=== PATIENT | female | born 1955 | race Caucasian/White ===

== ENCOUNTER 2019-12-31 06:05 | Inpatient (IN) | payer BC ==
[2019-12-27 14:56] VITALS: BMI 21.6
[2019-12-31] MEDS ORDERED: BUPIVACAINE LIPOSOME/PF (EXPAREL) 266 MG/20 ML VIAL ONE (06:50)
[2019-12-31] MEDS ORDERED: MIDAZOLAM HCL 2 MG/2 ML SINGLE DOSE VIAL ONE ×2 (06:50→08:05)
[2019-12-31] MEDS ORDERED: SODIUM CHLORIDE 0.9% P/F 10 ML VIAL IJ ONE (06:51)
[2019-12-31] MEDS ORDERED: VANCOMYCIN 1,000 MG VIAL (RESTRICTED TO ID ONLY) ONE (07:08)
[2019-12-31] MEDS ORDERED: TRANEXAMIC ACID 1000 MG/10 ML VIAL ONE ×2 (07:54→10:12)
[2019-12-31] MEDS ORDERED: ONDANSETRON 4 MG/2 ML VIAL ONE ×2 (07:54→10:21)
[2019-12-31] MEDS ORDERED: DEXAMETHASONE SOD PHOSPHATE 4 MG/1 ML VIAL ONE (07:54)
[2019-12-31] MEDS ORDERED: ceFAZolin SODIUM 1 GM VIAL ONE (07:54)
[2019-12-31] MEDS ORDERED: PROPOFOL 20 ML ONE ×5 (07:54→10:39)
[2019-12-31] MEDS ORDERED: SUCCINYLCHOLINE CHLORIDE 200 MG/10 ML SYRINGE ONE (07:54)
[2019-12-31] MEDS ORDERED: EPHEDRINE SULFATE/0.9% NACL/PF 50 MG/10 ML SYRINGE NR ONE (08:13)
[2019-12-31] MEDS ORDERED: BUPIVICAINE 0.25%/MORPH PF/KETOROLAC - 51ML DISP.SYRINGE IA ONE (09:27)
[2019-12-31] MEDS ORDERED: VANCOMYCIN 1,000 MG VIAL (RESTRICTED TO ID ONLY) IVPB ONE (10:11)
[2019-12-31] MEDS ORDERED: ONDANSETRON 4 MG/2 ML VIAL IVPUSH PRN ×2 (11:17→11:19)
[2019-12-31] MEDS ORDERED: MAGNESIUM HYDROX 2400MG/30ML ORAL SUSPENSION 30 ML CUP PO PRN (11:19)
[2019-12-31] MEDS ORDERED: MAG HYDROX/AL HYDROX/SIMETH 30 ML UNIT-DOSE CUP PO PRN (11:19)
[2019-12-31] MEDS ORDERED: LACTATED RINGERS SOLUTION 1,000 ML IV SCH ×2 (11:30)
[2019-12-31] MEDS: ACETAMINOPHEN 325 MG TABLET (FP) PO SCH ×3 (11:45→23:57)
[2019-12-31] MEDS: LACTATED RINGERS SOLUTION 1,000 ML/1,000 ML INFUS.BAG IV SCH (12:00)
[2019-12-31] MEDS: CEFAZOLIN 2 GM/D5W 2 GM/50 ML ML IVPB SCH ×2 (16:02→23:57)
[2019-12-31] MEDS: SENNOSIDES/DOCUSATE COMBO (SENNA PLUS) TABLET (UD) PO SCH (21:50)
[2019-12-31] MEDS: oxyCODONE HCL 10 MG SUSTAINED ACTING TABLET PO SCH (21:51)
[2019-12-31] MEDS: GABAPENTIN 300 MG CAPSULE PO SCH (21:51)
[2020-01-01] MEDS: ACETAMINOPHEN 325 MG TABLET (FP) PO SCH ×3 (05:23→17:13)
[2020-01-01] MEDS: oxyCODONE HCL 5 MG TABLET PO PRN ×3 (07:51→17:14)
[2020-01-01] MEDS: CEFAZOLIN 2 GM/D5W 2 GM/50 ML ML IVPB SCH (07:51)
[2020-01-01 08:21] LABS: HEMATOCRIT 30.5 % (32.4-45.2); MCH 32.3 pg (25.7-33.7); MCHC 32.7 g/dl (32.0-36.0); MEAN CELL VOLUME 98.8 fl (80-96); MEAN PLT VOLUME 9.5 fl (7.5-11.1); PLATELET COUNT 234 K/MM3 (134-434); RBC 3.09 M/mm3 (3.60-5.2); RDW 11.7 % (11.6-15.6); WHITE BLOOD COUNT 12.1 K/mm3 (4.0-10.8)
[2020-01-01 08:24] LABS: CALCIUM 8.2 mg/dl (8.5-10); CREATININE 0.7 mg/dl (0.55-1.3); POTASSIUM 3.7 mmol/L (3.5-5.1)
[2020-01-01] MEDS: ASPIRIN 325 MG TABLET PO SCH ×2 (09:19→22:08)
[2020-01-01] MEDS: GABAPENTIN 300 MG CAPSULE PO SCH ×2 (09:19→22:08)
[2020-01-01] MEDS: MULTIVITAMINS (DAILY MVI) TABLET (FP) PO SCH (09:19)
[2020-01-01] MEDS: PANTOPRAZOLE 40 MG TABLET PO SCH (09:19)
[2020-01-01] MEDS: oxyCODONE HCL 10 MG SUSTAINED ACTING TABLET PO SCH ×2 (09:19→22:08)
[2020-01-01] MEDS: SENNOSIDES/DOCUSATE COMBO (SENNA PLUS) TABLET (UD) PO SCH ×2 (09:19→22:08)
[2020-01-01] MEDS ORDERED: SODIUM CHLORIDE 500 ML IV STA (10:27)
[2020-01-01] MEDS ORDERED: traMADol HCL 50 MG TABLET PO ONE (10:43)
[2020-01-01] MEDS: LACTATED RINGERS SOLUTION 1,000 ML/1,000 ML INFUS.BAG IV SCH (13:42)
[2020-01-01] MEDS ORDERED: PT OWN MED DRAWER 7, Y5N ONE (17:20)
[2020-01-02] MEDS: ACETAMINOPHEN 325 MG TABLET (FP) PO SCH ×3 (01:00→12:00)
[2020-01-02 08:38] LABS: BASO % 1.1 % (0-2.0); EOS % 3.3 % (0-4.5); HEMATOCRIT 29.3 % (32.4-45.2); HEMOGLOBIN 9.6 GM/dl (10.7-15.3); LYMPH % 24.8 % (8-40); MCH 32.7 pg (25.7-33.7); MCHC 32.8 g/dl (32.0-36.0); MEAN CELL VOLUME 99.8 fl (80-96); MEAN PLT VOLUME 10.5 fl (7.5-11.1); MONO % 10.3 % (3.8-10.2); NEUT % 60.5 % (42.8-82.8); PLATELET COUNT 207 K/MM3 (134-434); RBC 2.94 M/mm3 (3.60-5.2); RDW 12.1 % (11.6-15.6); WHITE BLOOD COUNT 9.3 K/mm3 (4.0-10.8)
[2020-01-02 08:54] LABS: CREATININE 0.7 mg/dl (0.55-1.3); POTASSIUM 4.2 mmol/L (3.5-5.1)
[2020-01-02] MEDS: MULTIVITAMINS (DAILY MVI) TABLET (FP) PO SCH (09:26)
[2020-01-02] MEDS: PANTOPRAZOLE 40 MG TABLET PO SCH (09:27)
[2020-01-02] MEDS: GABAPENTIN 300 MG CAPSULE PO SCH (09:27)
[2020-01-02] MEDS: ASPIRIN 325 MG TABLET PO SCH (09:27)
[2020-01-02] MEDS: oxyCODONE HCL 5 MG TABLET PO PRN (09:28)
[2020-01-02] MEDS: SENNOSIDES/DOCUSATE COMBO (SENNA PLUS) TABLET (UD) PO SCH (09:28)
[2020-01-02 09:35] VITALS: BP 115/58; PULSE 78; TEMP 98.9
[2020-01-02] MEDS ORDERED: PT OWN MED DRAWER 7, Y5N ONE ×4 (11:01→12:54)
[2020-01-02] MEDS: oxyCODONE HCL 10 MG SUSTAINED ACTING TABLET PO SCH (12:00)
[2020-01-03 00:10] LABS: HEPATITIS C VIRUS EIA <0.1 s/co ratio (0.0-0.9)
[2020-01-03 18:08] LABS: HEP B CORE AB, TOT Negative (Negative)
== END 2020-01-02 13:00 | disposition home health service (06) | DRG 470 ==
LOC: SUATTDRO 06:05 → FASUSAT 06:05 → EDSTATUS 08:30 → FM/S 15:06 → FASUSAT 01-01 13:03
PROVIDERS: ADMIT Orthopaedic Surgery Sports Medicine; ATTEND Orthopaedic Surgery Sports Medicine
PROC: 0SRD0JZ Replacement of Left Knee Joint with Synthetic Substitute, Open Approach (ICD-10-PCS; principal; 2019-12-31 08:40)
DX: M17.12 Unilateral primary osteoarthritis, left knee (principal); D64.9 Anemia, unspecified; G43.909 Migraine, unspecified, not intractable, without status migrainosus; Z85.43 Personal history of malignant neoplasm of ovary
CPT/HCPCS: 36415; 73560-TC-LT-FY; 80048; 81003; 83010; 83615; 85025; 85027; 86704; 86706; 86707; 86708; 86709; 86803; 87340; 88305-TC; 88311-TC; 94760; 97010-GP; 97116-GP; 97162-GP

== ENCOUNTER 2022-04-26 04:03 | Day surgery (SDC) | payer BC ==
[2022-04-23 17:38] VITALS: BMI 20.2
[~2022-04-26 04:03] MED LIST: BUPIVACAINE HCL/PF 0.75% 10 ML VIAL NR ONE; LIDOCAINE 1% P/F 10 MG/ML VIAL INF ONE
[2022-04-26] MEDS ORDERED: LIDOCAINE HCL/PF 1% SDV 5ML VIAL ONE (07:29)
[2022-04-26] MEDS ORDERED: BUPIVACAINE HCL/PF 0.75% 10 ML VIAL ONE (07:29)
[2022-04-26 11:48] VITALS: RESP 18
[2022-04-26] MEDS ORDERED: LIDOCAINE 1% P/F 10 MG/ML VIAL INF ONE (14:01)
[2022-04-26] MEDS ORDERED: BUPIVACAINE HCL/PF 0.75% 10 ML VIAL NR ONE (14:01)
[2022-04-26 14:52] VITALS: BP 115/65; PULSE 65; TEMP 97.8
== END 2022-04-26 14:45 | disposition home or self-care (01) ==
LOC: JASU-SURG 04:03
PROVIDERS: ATTEND Pain Medicine Pain Medicine
PROC: 3E0T33Z Introduction of Anti-inflammatory into Peripheral Nerves and Plexi, Percutaneous Approach (ICD-10-PCS; 2022-04-26)
PROC: 3E0T3BZ Introduction of Anesthetic Agent into Peripheral Nerves and Plexi, Percutaneous Approach (ICD-10-PCS; principal; 2022-04-26 14:15)
DX: M47.816 Spondylosis without myelopathy or radiculopathy, lumbar region (principal)
CPT/HCPCS: 76000-TC-FY

== ENCOUNTER 2022-05-31 04:10 | Day surgery (SDC) | payer BC ==
[2022-05-30 11:33] VITALS: BMI 20.2
[~2022-05-31 04:10] MED LIST changes: -LIDOCAINE 1% P/F 10 MG/ML VIAL INF ONE
[2022-05-31] MEDS ORDERED: LIDOCAINE HCL/PF 1% SDV 5ML VIAL ONE (07:27)
[2022-05-31] MEDS ORDERED: BUPIVACAINE HCL/PF 0.75% 10 ML VIAL ONE (07:27)
[2022-05-31 10:06] VITALS: RESP 20
[2022-05-31] MEDS ORDERED: ACETAMINOPHEN 500 MG TABLET (FP) PO PRN (10:57)
[2022-05-31] MEDS ORDERED: LIDOCAINE HCL 1% PRESERVATIVE FREE - 30ML VIAL IJ ONE (12:09)
[2022-05-31] MEDS ORDERED: BUPIVACAINE HCL/PF 0.75% 10 ML VIAL NR ONE (12:13)
[2022-05-31 14:11] VITALS: BP 112/70; PULSE 68; TEMP 98.1
== END 2022-05-31 12:50 | disposition home or self-care (01) ==
LOC: JASU-SURG 04:10
PROVIDERS: ATTEND Pain Medicine Pain Medicine
PROC: 3E0T33Z Introduction of Anti-inflammatory into Peripheral Nerves and Plexi, Percutaneous Approach (ICD-10-PCS; 2022-05-31)
PROC: 3E0T3BZ Introduction of Anesthetic Agent into Peripheral Nerves and Plexi, Percutaneous Approach (ICD-10-PCS; principal; 2022-05-31 11:30)
DX: M47.816 Spondylosis without myelopathy or radiculopathy, lumbar region (principal)
CPT/HCPCS: 76000-TC-FY

== ENCOUNTER → 2022-07-09 | Day surgery (SDC) | payer BC ==
[~2022-07-09] MED LIST changes: +ACETAMINOPHEN 500 MG TABLET (FP) PO PRN; +BUPIVACAINE HCL/PF 0.5% (5MG/ML) 10 ML VIAL ONE; +DEXAMETHASONE SOD PHOSPHATE 10 MG/1 ML VIAL IVPUSH ONE; +DEXAMETHASONE SOD PHOSPHATE 10 MG/1 ML VIAL ONE; +LIDOCAINE 1% P/F 10 MG/ML VIAL INF ONE; +LIDOCAINE HCL/PF 1% SDV 5ML VIAL ONE; +LIDOCAINE HCL/PF 2% SDV 5ML VIAL INF ONE; +LIDOCAINE HCL/PF 2% SDV 5ML VIAL ONE
[2022-07-09 14:59] VITALS: BP 120/77; PULSE 69; RESP 16; TEMP 98.5
== END | disposition home or self-care (01) ==
LOC: JASU-SURG 04:19
PROVIDERS: ATTEND Pain Medicine Pain Medicine
PROC: 015B3ZZ Destruction of Lumbar Nerve, Percutaneous Approach (ICD-10-PCS; principal; 2022-07-09 15:45)
DX: M47.816 Spondylosis without myelopathy or radiculopathy, lumbar region (principal)
CPT/HCPCS: 76000-TC-FY; J1100

== ENCOUNTER 2022-08-02 03:51 | Day surgery (SDC) | payer BC ==
[2022-08-02] MEDS ORDERED: BUPIVACAINE HCL/PF 0.75% 10 ML VIAL ONE (07:34)
[2022-08-02] MEDS ORDERED: LIDOCAINE HCL/PF 2% SDV 5ML VIAL ONE (07:34)
[2022-08-02] MEDS ORDERED: DEXAMETHASONE SOD PHOSPHATE 10 MG/1 ML VIAL ONE (07:35)
[2022-08-02] MEDS ORDERED: LIDOCAINE HCL/PF 1% SDV 5ML VIAL ONE (07:35)
[2022-08-02 10:30] VITALS: RESP 16; TEMP 97.3
[2022-08-02] MEDS ORDERED: ACETAMINOPHEN 500 MG TABLET (FP) PO PRN (10:39)
[2022-08-02 10:45] VITALS: BP 120/60; PULSE 55
== END 2022-08-02 10:55 | disposition home or self-care (01) ==
LOC: JASU-SURG 03:51
PROVIDERS: ATTEND Pain Medicine Pain Medicine
PROC: 015B3ZZ Destruction of Lumbar Nerve, Percutaneous Approach (ICD-10-PCS; principal; 2022-08-02 09:47)
DX: M47.816 Spondylosis without myelopathy or radiculopathy, lumbar region (principal)
CPT/HCPCS: 76000-TC-FY; J1100

== ENCOUNTER 2024-03-31 09:20 | Day surgery (SDC) | payer BC, OTHER ==
[2024-03-25 14:39] VITALS: BMI 20.3
[2024-03-31 09:52] VITALS: RESP 18; TEMP 98.2
[2024-03-31 11:21] VITALS: PULSE 78
[2024-03-31 11:53] VITALS: BP 112/50
== END 2024-03-31 11:48 | disposition home or self-care (01) ==
LOC: FASU-ENDO 09:20
PROVIDERS: ATTEND Internal Medicine Gastroenterology
PROC: 0DJD8ZZ Inspection of Lower Intestinal Tract, Via Natural or Artificial Opening Endoscopic (ICD-10-PCS; principal; 2024-03-31 10:53)
DX: Z12.11 Encounter for screening for malignant neoplasm of colon (principal); K64.1 Second degree hemorrhoids